=== PATIENT | female | born 1955 | race African-American/Black ===

== ENCOUNTER 2019-06-27 17:16 | Observation (INO) ==
[2019-06-27] MEDS ORDERED: MECLIZINE 25 MG TABLET PO STA (18:13)
[2019-06-27] MEDS ORDERED: ONDANSETRON 4 MG/2 ML VIAL IV STA (18:13)
[2019-06-27] MEDS ORDERED: SODIUM CHLORIDE 0.9% 1,000 ML IV STA (18:35)
[2019-06-27 18:39] LABS: Basophils # 0.1 10*3/uL (0.0-0.2); Basophils % 0.7 % (0.0-0.8); Eosinophils # 0.1 10*3/uL (0.0-0.87); Eosinophils % 0.7 % (0.00-10.9); Hematocrit 35.9 VOL% (35.7-47.0); Hemoglobin 10.9 GM/DL (12.0-16.0); Immature Granulocytes % 0.3 %; Immature Granulocytes Absolute 0.02 #; Lymphocytes # 2.5 10*3/uL (1.4-4.0); Lymphocytes % 35.5 % (21.3-54.2); Mean Corpuscular HGB Conc 30.4 GM/DL (32-36); Mean Corpuscular Volume 72.1 FL (87-102); Mean Platelet Volume 8.9 FL (9.6-12.0); Neutrophils % 52.8 % (38.7-73.9); Platelet Count 260 T/CUMM (130-400); Red Blood Count 4.98 MC/CUMM (3.8-5.5); Red Cell Distribution Width 23.1 % (9.3-17.3)
[2019-06-27 18:57] LABS: Alanine Aminotransferase 25 U/L (13-56); Albumin 3.5 G/DL (3.4-5.0); Alkaline Phosphatase 121 U/L (45-117); Aspartate Amino Transferase 35 U/L (0-37); Blood Urea Nitrogen 19 MG/DL (7-18); Calcium 8.9 MG/DL (8.5-10.1); Estimated Glom Filtration Rate 39 ML/MIN; Glucose 98 MG/DL (74-106); Osmolality,Calculated 278.5 MOS/KG (273-304); Total Protein 8.5 G/DL (6.4-8.3); Troponin I < 0.015 NG/ML (0.00-0.045)
[2019-06-27 19:24] LABS: INR 1.1; PT Patient Result 12.2 SECS (9.6-12.2)
[2019-06-27 20:01] LABS: Apearance,Urine Slightly Hazy (Clear); Bilirubin,Urine Negative (Negative); Blood, Urine Negative (Negative); Glucose,Urine (UA) Negative (Negative); Hyaline Casts,Urine 27 /LPF (0-3); Ketones,Urine Negative (Negative); Mucus,Urine Occasional /LPF (Occasional); Nitrite,Urine Negative (Negative); Protein,Urine 30 MG/DL; RBC,Urine 3 /HPF (0-4); Squamous Epithelial Cell,Urine Occasional /HPF (0-10); Urine Color Yellow (Yellow); Urine Specific Gravity 1.015 (1.001-1.035); WBC,Urine 8 /HPF (0-6)
[2019-06-27 20:08] LABS: Barbiturates Screen,Urine Negative (Negative); Benzodiazepines Screen,Urine Negative (Negative); Cannabinoid Screen,Urine Positive (Negative); Opiate Screen,Urine Negative (Negative); Phencyclidine Screen,Urine Negative (Negative)
[2019-06-27] MEDS ORDERED: ACETAMINOPHEN 325 MG TABLET PO PRN (20:19)
[2019-06-27] MEDS ORDERED: MAGNESIUM SULF RIDER 4 GM in PREMIX 1 EACH IV PRN (20:19)
[2019-06-27] MEDS ORDERED: POTASSIUM CHLORIDE 20 MEQ TABLET PO PRN (20:19)
[2019-06-27] MEDS ORDERED: NICOTINE 21 MG/24 HR PATCH TRANSDERM PRN (20:19)
[2019-06-27] MEDS ORDERED: ONDANSETRON 4 MG/2 ML VIAL IV PRN (20:19)
[2019-06-27] MEDS ORDERED: BISACODYL 5 MG TABLET PO PRN (20:19)
[2019-06-27] MEDS ORDERED: MAGNESIUM SULF RIDER 2 GM in PREMIX 1 EACH IV PRN (20:19)
[2019-06-27 21:01] LABS: Risk Ratio 3.2; VLDL CHOLESTEROL 23.6 MG/DL
[2019-06-27] MEDS ORDERED: SODIUM CHLORIDE 0.9% 100 ML IV ONE (21:14)
[2019-06-27 21:23] LABS: Hypochromasia 1+; Microcytosis 3+
[2019-06-27 21:24] LABS: Ovalocytes Few; Platelet Estimate Normal; Polychromasia Slight
[2019-06-27] MEDS: cefTRIAXone 1,000 MG in SYRINGE 1 EACH IV SCH (21:27)
[2019-06-28 05:38] LABS: Basophils # 0.1 10*3/uL (0.0-0.2); Eosinophils # 0.1 10*3/uL (0.0-0.87); Eosinophils % 1.5 % (0.00-10.9); Hematocrit 32.9 VOL% (35.7-47.0); Hemoglobin 9.7 GM/DL (12.0-16.0); Immature Granulocytes % 0.3 %; Immature Granulocytes Absolute 0.02 #; Lymphocytes # 2.9 10*3/uL (1.4-4.0); Lymphocytes % 40.7 % (21.3-54.2); Mean Corpuscular HGB Conc 29.5 GM/DL (32-36); Mean Corpuscular Volume 73.1 FL (87-102); Monocytes % 10.7 % (1.7-12.7); Neutrophils % 45.8 % (38.7-73.9); Platelet Count 233 T/CUMM (130-400); Red Cell Distribution Width 22.5 % (9.3-17.3); White Blood Count 7.2 T/CUMM (4-12)
[2019-06-28 06:04] LABS: Albumin 3.2 G/DL (3.4-5.0); Bilirubin,Total 0.6 MG/DL (0.2-1.0); Calcium 6.5 MG/DL (8.5-10.1); Osmolality,Calculated 283.3 MOS/KG (273-304); Total Protein 7.6 G/DL (6.4-8.3)
[2019-06-28] MEDS ORDERED: amLODIPine 10 MG TABLET PO SCH (11:00)
[2019-06-28] MEDS: SODIUM CHLORIDE 0.9% 1,000 ML IV SCH ×2 (13:09→21:30)
[2019-06-28] MEDS: carvediloL 12.5 MG TABLET PO SCH ×2 (13:09→21:28)
[2019-06-28 14:09] LABS: % Iron Saturation 4.1 % (18-50); Ferritin 12.1 ng/ml (8-252)
[2019-06-28 18:08] LABS: Folate 14.2 NG/ML (5.4-24.0)
[2019-06-28] MEDS: ZIPRASIDONE 20 MG CAPSULE PO SCH (21:27)
[2019-06-28] MEDS: cefTRIAXone 1,000 MG in SYRINGE 1 EACH IV SCH (21:28)
[2019-06-29] MEDS: SODIUM CHLORIDE 0.9% 1,000 ML IV SCH (06:21)
[2019-06-29] MEDS ORDERED: ATORVASTATIN 10 MG TABLET PO SCH (09:00)
[2019-06-29] MEDS ORDERED: lamoTRIgine 25 MG TABLET PO SCH (09:00)
[2019-06-29] MEDS ORDERED: busPIRone 15 MG TABLET PO SCH (09:00)
[2019-06-29] MEDS ORDERED: FERROUS SULFATE 325 MG TABLET PO SCH (10:00)
[2019-06-29] MEDS: ZIPRASIDONE 20 MG CAPSULE PO SCH (10:12)
[2019-06-29] MEDS: carvediloL 12.5 MG TABLET PO SCH (10:13)
[2019-06-29 16:18] VITALS: BP 133/69
== END 2019-06-29 16:00 | disposition home or self-care (01) ==
LOC: EDUNIT# → N.ED 17:16 → N.EDINP 17:16 → N.TELEN 20:40
PROVIDERS: ADMIT Internal Medicine; ATTEND Internal Medicine

== ENCOUNTER 2021-03-27 20:24 | Observation (INO) ==
[2021-03-27] MEDS ORDERED: ONDANSETRON 4 MG/2 ML VIAL IV PRN (23:36)
[2021-03-27] MEDS ORDERED: DEXTROSE 50% 25 GM/50 ML VIAL IV PRN (23:36)
[2021-03-27] MEDS ORDERED: GLUCAGON 1 MG VIAL IM PRN (23:36)
[2021-03-27] MEDS ORDERED: ACETAMINOPHEN 325 MG TABLET PO PRN (23:36)
[2021-03-27] MEDS: ENOXAPARIN 40 MG/0.4 ML SYRINGE SUBCUT SCH (23:47)
[2021-03-28] MEDS ORDERED: SODIUM CHLORIDE 0.9% 1,000 ML IV SCH (00:30)
[2021-03-28] MEDS: CIPROFLOXACIN INJ 400 MG/200 ML PREMIX IV SCH ×2 (06:35→20:03)
[2021-03-28 07:03] LABS: Basophils # 0.1 10*3/uL (0.0-0.2); Basophils % 0.8 % (0.0-0.8); Eosinophils # 0.2 10*3/uL (0.0-0.87); Eosinophils % 2.9 % (0.00-10.9); Hematocrit 32.3 VOL% (35.7-47.0); Hemoglobin 9.9 GM/DL (12.0-16.0); Immature Granulocytes % 0.2 %; Immature Granulocytes Absolute 0.01 #; Lymphocytes # 2.6 10*3/uL (1.4-4.0); Lymphocytes % 43.8 % (21.3-54.2); Mean Corpuscular HGB Conc 30.7 GM/DL (32-36); Mean Corpuscular Volume 111.4 FL (87-102); Monocytes % 19.2 % (1.7-12.7); Neutrophils % 33.1 % (38.7-73.9); Platelet Count 144 T/CUMM (130-400); Red Cell Distribution Width 17.4 % (9.3-17.3); White Blood Count 5.9 T/CUMM (4-12)
[2021-03-28 07:21] LABS: Albumin 1.8 G/DL (3.4-5.0); Calcium 7.7 MG/DL (8.5-10.1); Potassium 4.1 MMOL/L (3.5-5.1); Total Protein 7.6 G/DL (6.4-8.2)
[2021-03-28 07:23] LABS: Eosinophils 1 % (0-10); Hypochromasia 1+; Lymphocytes 43 % (20-55); Microcytosis 1+; Platelet Estimate Adequate; Segmented Neutrophils 35 % (50-85); Total Cells Counted 100
[2021-03-28] MEDS: PANTOPRAZOLE 40 MG TABLET PO SCH (09:01)
[2021-03-28 11:11] LABS: Bilirubin,Urine Negative (Negative); Blood, Urine Negative (Negative); Glucose,Urine (UA) Negative (Negative); Ketones,Urine Negative (Negative); Nitrite,Urine Negative (Negative); Protein,Urine Negative; RBC,Urine 3 /HPF (0-4); Squamous Epithelial Cell,Urine Occasional /HPF (0-10); Urine Appearance CLEAR (Clear); Urine Color Yellow (Yellow); Urine Specific Gravity 1.008 (1.001-1.035); Urine Urobilinogen < 2.0 EU/DL (0.2-1.0)
[2021-03-28 11:13] LABS: Barbiturates Screen,Urine Negative (Negative); Benzodiazepines Screen,Urine Negative (Negative); Cannabinoid Screen,Urine Negative (Negative); Opiate Screen,Urine Negative (Negative); Phencyclidine Screen,Urine Negative (Negative)
[2021-03-28] MEDS: DEXT 5% NACL 0.45% KCL 20 MEQ 20 MEQ/1,000 ML BAG IV SCH (17:06)
[2021-03-28] MEDS: hydrALAZINE 20 MG/1 ML VIAL IV PRN (19:40)
[2021-03-28] MEDS: ENOXAPARIN 40 MG/0.4 ML SYRINGE SUBCUT SCH (20:03)
[2021-03-29] MEDS: hydrALAZINE 20 MG/1 ML VIAL IV PRN (04:28)
[2021-03-29 05:42] LABS: Basophils # 0.1 10*3/uL (0.0-0.2); Basophils % 0.8 % (0.0-0.8); Eosinophils # 0.1 10*3/uL (0.0-0.87); Eosinophils % 0.9 % (0.00-10.9); Hematocrit 33.8 VOL% (35.7-47.0); Hemoglobin 10.7 GM/DL (12.0-16.0); Immature Granulocytes % 0.4 %; Immature Granulocytes Absolute 0.03 #; Lymphocytes # 3.2 10*3/uL (1.4-4.0); Mean Corpuscular HGB Conc 31.7 GM/DL (32-36); Mean Corpuscular Volume 106.6 FL (87-102); Mean Platelet Volume 9.5 FL (9.6-12.0); Monocytes % 10.7 % (1.7-12.7); Neutrophils % 46.2 % (38.7-73.9); Platelet Count 197 T/CUMM (130-400); Red Blood Count 3.17 MC/CUMM (3.8-5.5); Red Cell Distribution Width 17.2 % (9.3-17.3); White Blood Count 7.9 T/CUMM (4-12)
[2021-03-29] MEDS: cloNIDine 0.1 MG/24 HR PATCH TRANSDERM SCH ×2 (06:21→10:51)
[2021-03-29 06:26] LABS: Calcium 8.3 MG/DL (8.5-10.1); Osmolality,Calculated 287.8 MOS/KG (273-304); Potassium 4.1 MMOL/L (3.5-5.1)
[2021-03-29] MEDS: PANTOPRAZOLE 40 MG TABLET PO SCH (10:18)
[2021-03-29] MEDS: CIPROFLOXACIN INJ 400 MG/200 ML PREMIX IV SCH ×2 (10:19→21:08)
[2021-03-29] MEDS: DEXT 5% NACL 0.45% KCL 20 MEQ 20 MEQ/1,000 ML BAG IV SCH (10:59)
[2021-03-29] MEDS: ENOXAPARIN 40 MG/0.4 ML SYRINGE SUBCUT SCH (21:07)
[2021-03-30 06:20] LABS: Calcium 7.9 MG/DL (8.5-10.1); Osmolality,Calculated 275.5 MOS/KG (273-304); Potassium 4.1 MMOL/L (3.5-5.1)
[2021-03-30 06:25] LABS: % Iron Saturation 44.1 % (18-50); Ferritin 69.9 ng/ml (8-252)
[2021-03-30 06:29] LABS: Folate > 24.00 NG/ML (5.38-24.0); Vitamin B12 1897 PG/ML (211-911)
[2021-03-30 07:26] LABS: Sedimentation Rate-Westergren 116 MM/HR (0-30)
[2021-03-30 07:30] LABS: Basophils # 0.1 10*3/uL (0.0-0.2); Eosinophils # 0.1 10*3/uL (0.0-0.87); Eosinophils % 2.6 % (0.00-10.9); Hematocrit 28.5 VOL% (35.7-47.0); Hemoglobin 9.5 GM/DL (12.0-16.0); Immature Granulocytes % 0.2 %; Immature Granulocytes Absolute 0.01 #; Lymphocytes # 2.1 10*3/uL (1.4-4.0); Lymphocytes % 41.8 % (21.3-54.2); Mean Corpuscular HGB Conc 33.3 GM/DL (32-36); Mean Corpuscular Volume 106.7 FL (87-102); Mean Platelet Volume 9.5 FL (9.6-12.0); Monocytes % 13.4 % (1.7-12.7); Platelet Count 115 T/CUMM (130-400); Red Blood Count 2.67 MC/CUMM (3.8-5.5); White Blood Count 4.9 T/CUMM (4-12)
[2021-03-30] MEDS: DEXT 5% NACL 0.45% KCL 20 MEQ 20 MEQ/1,000 ML BAG IV SCH ×2 (09:44→18:30)
[2021-03-30] MEDS: PANTOPRAZOLE 40 MG TABLET PO SCH (09:45)
[2021-03-30] MEDS: CIPROFLOXACIN INJ 400 MG/200 ML PREMIX IV SCH ×2 (09:45→21:01)
[2021-03-30] MEDS: hydrALAZINE 20 MG/1 ML VIAL IV PRN (09:50)
[2021-03-30] MEDS: VITAMIN E 400 UNIT CAPSULE PO SCH (21:00)
[2021-03-30] MEDS: ENOXAPARIN 40 MG/0.4 ML SYRINGE SUBCUT SCH (21:00)
[2021-03-31] MEDS: DEXT 5% NACL 0.45% KCL 20 MEQ 20 MEQ/1,000 ML BAG IV SCH ×2 (04:08→21:02)
[2021-03-31 06:31] LABS: Basophils # 0.1 10*3/uL (0.0-0.2); Eosinophils # 0.2 10*3/uL (0.0-0.87); Eosinophils % 3.9 % (0.00-10.9); Hematocrit 28.1 VOL% (35.7-47.0); Hemoglobin 8.9 GM/DL (12.0-16.0); Immature Granulocytes % 0.4 %; Immature Granulocytes Absolute 0.02 #; Lymphocytes % 40.8 % (21.3-54.2); Mean Corpuscular HGB Conc 31.7 GM/DL (32-36); Mean Corpuscular Volume 109.3 FL (87-102); Mean Platelet Volume 9.7 FL (9.6-12.0); Monocytes % 12.9 % (1.7-12.7); Platelet Count 120 T/CUMM (130-400); Red Blood Count 2.57 MC/CUMM (3.8-5.5); Red Cell Distribution Width 16.3 % (9.3-17.3); White Blood Count 4.9 T/CUMM (4-12)
[2021-03-31 06:43] LABS: Calcium 7.5 MG/DL (8.5-10.1); Osmolality,Calculated 278.5 MOS/KG (273-304); Potassium 4.4 MMOL/L (3.5-5.1)
[2021-03-31 07:00] LABS: Eosinophils 5 % (0-10); Lymphocytes 41 % (20-55); Macrocytosis 1+; Platelet Estimate Normal; Segmented Neutrophils 47 % (50-85); Total Cells Counted 100
[2021-03-31 07:01] LABS: Tear Drop Cells Slight
[2021-03-31 07:02] LABS: Anisocytosis 1+; Polychromasia Slight
[2021-03-31] MEDS ORDERED: POLYETHYLENE GLYCOL POWDER 17 GM PACK PO SCH (09:00)
[2021-03-31] MEDS: PYRIDOXINE 100 MG TABLET PO SCH (10:40)
[2021-03-31] MEDS: VITAMIN E 400 UNIT CAPSULE PO SCH ×2 (10:41→21:02)
[2021-03-31] MEDS: DILTIAZEM 30 MG TABLET PO SCH ×2 (10:41→21:02)
[2021-03-31] MEDS: MULTIVITAMIN (BEROCCA) TABLET PO SCH (10:41)
[2021-03-31] MEDS: PANTOPRAZOLE 40 MG TABLET PO SCH (10:41)
[2021-03-31] MEDS: DOCUSATE SODIUM 100 MG CAPSULE PO SCH ×2 (10:42→21:02)
[2021-03-31] MEDS: ENOXAPARIN 40 MG/0.4 ML SYRINGE SUBCUT SCH (21:02)
[2021-04-01 04:52] LABS: Basophils # 0.1 10*3/uL (0.0-0.2); Basophils % 0.9 % (0.0-0.8); Eosinophils # 0.2 10*3/uL (0.0-0.87); Eosinophils % 2.7 % (0.00-10.9); Hemoglobin 8.8 GM/DL (12.0-16.0); Immature Granulocytes % 0.2 %; Immature Granulocytes Absolute 0.01 #; Lymphocytes # 2.4 10*3/uL (1.4-4.0); Lymphocytes % 43.4 % (21.3-54.2); Mean Corpuscular HGB Conc 32.6 GM/DL (32-36); Mean Corpuscular Volume 106.7 FL (87-102); Neutrophils % 37.8 % (38.7-73.9); Platelet Count 112 T/CUMM (130-400); Red Blood Count 2.53 MC/CUMM (3.8-5.5); White Blood Count 5.5 T/CUMM (4-12)
[2021-04-01 05:10] LABS: Calcium 7.6 MG/DL (8.5-10.1); Osmolality,Calculated 280.4 MOS/KG (273-304); Potassium 4.2 MMOL/L (3.5-5.1)
[2021-04-01 05:39] LABS: Eosinophils 2 % (0-10); Hypochromasia 1+; Lymphocytes 40 % (20-55); Microcytosis 1+; Platelet Estimate Decreased; Segmented Neutrophils 44 % (50-85); Total Cells Counted 100
[2021-04-01 08:43] VITALS: BP 136/78
[2021-04-01] MEDS: MULTIVITAMIN (BEROCCA) TABLET PO SCH (09:29)
[2021-04-01] MEDS: VITAMIN E 400 UNIT CAPSULE PO SCH (09:29)
[2021-04-01] MEDS: PYRIDOXINE 100 MG TABLET PO SCH (09:29)
[2021-04-01] MEDS: DOCUSATE SODIUM 100 MG CAPSULE PO SCH (09:30)
[2021-04-01] MEDS: DILTIAZEM 30 MG TABLET PO SCH (09:30)
[2021-04-01] MEDS: PANTOPRAZOLE 40 MG TABLET PO SCH (09:30)
[2021-04-01 10:52] LABS: Hemoglobin A1 (Alkaline) 97.8 % (96.5-98.5); Hemoglobin A2 (Alkaline) 2.2 % (1.5-3.5)
== END 2021-04-01 12:35 | disposition home or self-care (01) ==
LOC: N.5E
PROVIDERS: ADMIT Internal Medicine; ATTEND Hospitalist